=== PATIENT | male | born 1970 | race Caucasian/White ===

== ENCOUNTER 2019-06-21 18:44 | Emergency (ER) | payer OTHER, SELFPAY ==
--- NOTE | ~2019-06-21 | XR_ITS ---
EXAMINATION: XR chest 2V 06/21/2019 20:14 INDICATION: Midsternal chest pain. Emphysema. PROCEDURE: 2 view chest COMPARISON: No prior studies for comparison. FINDINGS: The lungs are clear. Healed right seventh rib fracture. The cardiomediastinal silhouette is within normal limits. There are no pleural effusions. There is no pneumothorax suspected. The lungs are hyperinflated which is consistent with, but not diagnostic of chronic obstructive pulmo nary disease. IMPRESSION: 1: NO ACUTE CARDIOPULMONARY DISEASE. Reviewed, dictated and finalized at location [facility]
[2019-06-21 19:26] VITALS: BP 135/87; PULSE 78; RESP 15; O2SAT 98
--- NOTE | 2019-06-21 19:26 | PC.NURSE ---
Family member with patient came to desk to report that patient keeps stopping breathing . Vital signs obtained and documented. Informed patient of reason for wait for triage.
[2019-06-21 19:52] VITALS: BP 134/85; PULSE 76; RESP 18; TEMP 36.8; O2SAT 98
--- NOTE | 2019-06-21 19:52 | ECG_ITS ---
Measurements Intervals [place] Rate: 82 P: 61 TN: 164 QRS: 60 QRSD: 94 T: 59 QT: 360 QTc: 422 Interpretive Statements SINUS RHYTHM BASELINE ARTIFACT- I, II, AVR, AVF, V1-V3 NORMAL ECG Electronically Signed On 06-22-2019 8:00:01 INTERCHANGE AGENT by Manjinder Anderson D.O.
[2019-06-21 20:02] LABS: Basophils Absolute Auto 0.1 K/mm3 (0.0-0.1); Basophils Percent Auto 1.3 % (0.2-1.2); Eosinophils Absolute Auto 0.2 K/mm3 (0-0.3); Eosinophils Percent Auto 5.1 % (0-4.4); Hematocrit 37.9 % (42.0-52.0); Hemoglobin 12.1 g/dL (14.0-18.0); Lymphocytes Absolute Auto 1.62 K/mm3 (0.9-3.2); Lymphocytes Percent Auto 41.3 % (18.3-44.2); Mean Corpuscular HGB Conc 31.9 g/dl (32-36); Mean Corpuscular Hemoglobin 26.5 pg (26-34); Mean Corpuscular Volume 83.1 fl (80-100); Mean Platelet Volume 8.9 fl (7.4-10.4); Monocytes Absolute Auto 0.4 K/mm3 (0.1-0.6); Monocytes Percent Auto 11.2 % (2.6-8.5); Neutrophils Absolute Auto 1.6 K/mm3 (1.3-6.7); Neutrophils Percent Auto 41.1 % (45.5-73.1); Platelet Count Result 76 k/mm3 (150-375); Red Blood Count 4.56 M/mm3 (4.6-6.20); Red Cell Distribution Width 17.7 % (11.5-14.5); White Blood Count 3.9 K/mm3 (4.5-10.0)
[2019-06-21 20:13] LABS: Blood Urea Nitrogen 5 mg/dL (9-20); Calcium 8.7 mg/dL (8.4-10.2); Carbon Dioxide 26 mmol/L (22-30); Chloride 98 mmol/L (98-107); Estimated CRCL calculation 157 ml/min; Estimated Glomerular Filt Rate > 60; Glucose 72 mg/dL (75-110); Potassium 3.7 mmol/L (3.4-5.0); Sodium 139 mmol/L (137-145)
[2019-06-21 20:15] LABS: Partial Thromboplastin Time 30.1 SECONDS (22.3-36.8); Prothrombin Time 12.7 Seconds (11.1-14.7)
[2019-06-21 20:26] LABS: Troponin I < 0.012 ng/mL (0.000-0.034)
[2019-06-21 20:50] VITALS: BP 158/104; PULSE 71; RESP 16; TEMP 36.6; O2SAT 96
--- NOTE | 2019-06-21 21:17 | ED.CHESTPAIN ---
HPI - Chest Pain General Chief Complaint: Chest Pain Stated Complaint: CP, SOB Time Seen by Provider: 06/21/19 21:04 Source: patient and RN notes reviewed Mode of arrival: other Limitations: no limitations History of Present Illness HPI narrative: Pt is a 48 y/o male who presents to the ED with midsternal chest pain that began earlier this afternoon. Pt denies his pain radiating to another location. Pt reports urinary and fecal incontinence because he cannot get to the bathroom in time. Pt notes that his stool is soft and watery. He notes that he has had a lot of bright, red blood that is mixed with his stool. Pt was checked for hemorrhoids last month and had negative results. Pt also reports SOB, LLQ ABD pain, BLE pain, dysuria, urinary urgency, coughing up teaspoons of blood, and dizziness, but denies vomiting and lightheadedness. MD complaint: chest pain Onset (ago): hour(s) Timing of current episode: still present Pain location: substernal Pain radiation: none Associated symptoms: dyspnea and other (LLQ ABD pain, BLE pain, blood in his stools, urinary incontinence, fecal incontinence, dysuria, urinary urgency, coughing up teaspoons of blood, dizziness) Related Data Allergies Allergy/AdvReac Type Severity Reaction Status Date / Time codeine Allergy Rash Verified 06/21/19 21:31 Penicillins Allergy Rash Verified 06/21/19 21:31 Review of Systems Review of Systems: Narrative: All systems reviewed & are unremarkable except as noted in HPI and below Cardiovascular: Cardiovascular: Reports chest pain (midsternal) and Denies lightheadedness Respiratory: Respiratory: Reports hemoptysis (teaspoons) and Reports dyspnea Gastrointestinal: Gastrointestinal: Reports abdominal pain (LLQ), Reports hematochezia, Reports fecal incontinence, Reports loose stools and Denies vomiting Genitourinary: Genitourinary: Reports dysuria, Reports urinary incontinence and Reports urinary urgency Musculoskeletal: Musculoskeletal: Reports other (BLE pain) Neurologic: Reports dizziness PMFSH Past Medical History Medical History (Updated 06/22/19 @ 03:19 by Rico Bailey MD) Colon polyp COPD (chronic obstructive pulmonary disease) Emphysema of lung Seizures Surgical History Surgical History (Updated 06/21/19 @ 22:50 by Sosa Lopez) Hx of endoscopy Exam Const: General: no acute distress and ill appearing acutely and chronically Nutritional Appearance: well nourished HENMT: Mouth: Yes lip normal, Yes moist mucous membranes and Yes malodorous breath other (breath of alcohol) Eyes: Conjunctivae: conjunctivae normal Pupils: Equal, round and reactive pupils present Resp: Effort & Inspection: normal respiratory effort Auscultation: clear to auscultation bilaterally Cardio: Rate: regular rate Rhythm: regular rhythm GI: GI Palp: Yes abdominal tenderness (generalized, worse in LLQ) and Yes Soft to palpation Auscultation: normal bowel sounds Back/Spine/Pelvis: Back: other (Full ROM) Skin: General skin exam: normal color, dry skin and other (warm) Neuro: General: patient oriented x3 and other (alert) Speech: normal speech Extrem: General: full ROM Psych: Mental Status: mental status grossly normal Affect: normal affect Course Vital Signs Vital signs: Vital Signs Pulse Rate 78 06/21/19 19:26 Respiratory Rate 15 06/21/19 19:26 Blood Pressure 135/87 06/21/19 19:26 Pulse Oximetry 98 06/21/19 19:26 Temperature 36.6 C 06/21/19 20:50 Pulse Rate 75 06/22/19 02:04 Respiratory Rate 13 06/22/19 02:04 Blood Pressure 113/75 06/22/19 02:04 Pulse Oximetry 91 06/22/19 00:24 MDM - Chest Pain MDM Narrative Medical decision making narrative: Cardiac work-up was negative. Normal hemoglobin, stable on recheck. Chest x-ray negative. No indication of UTI. Lab Data Result diagrams: 06/22/19 02:46 06/21/19 19:56 Labs: Lab Results 06/21/19 06/21/19 06/21/19 Range/U
[2019-06-21] MEDS: ALBUTEROL SULFATE NEB 2.5 MG/0.5 ML INH 5 MG INHALATION (21:37)
[2019-06-21 21:38] VITALS: PULSE 69; RESP 16
[2019-06-21] MEDS: IPRATROPIUM BR 0.02% INH SOLN 0.5 MG/2.5 ML VIAL INHALATION (21:38)
[2019-06-21 21:46] VITALS: PULSE 71; RESP 16
[2019-06-21] MEDS: PANTOPRAZOLE SODIUM IV 40 MG VIAL IV PUSH (21:54)
[2019-06-21 21:55] VITALS: BP 118/71; PULSE 73; RESP 12; O2SAT 96
[2019-06-21 22:18] LABS: Alanine Aminotransferase 87 U/L (4-50); Albumin Level 4.3 g/dL (3.5-5.1); Alkaline Phosphatase 54 U/L (38-126); Aspartate Amino Transferase 174 U/L (17-59); Bilirubin,Total 0.7 mg/dL (0.2-1.3); Lipase 262 U/L (23-300)
[2019-06-21 22:27] LABS: Ethanol 405 mg/dL (<10)
[2019-06-21 23:25] LABS: Troponin I < 0.012 ng/mL (0.000-0.034)
[2019-06-22 00:24] VITALS: BP 114/77; PULSE 76; RESP 14; O2SAT 91
[2019-06-22 02:04] VITALS: BP 113/75; PULSE 75; RESP 13
[2019-06-22 02:53] LABS: Hematocrit 35.4 % (42.0-52.0); Hemoglobin 11.4 g/dL (14.0-18.0)
--- NOTE | 2019-06-22 11:38 | PCCCNOTE ---
0800 - spoke with patient and spouse regarding transportation home. Spouse requested bus tokens for herself and . Called his [employer] and found that his insurance, [employer], had transportation benefits - he could pay for the transportation and be reimbursed by [employer] or [employer] would find a local provider who could take them both to [place]. Reiterated with patient and family that because he did have transportation benefits he would need to wait the approximate 1 - 3 hrs for transportation but included that [employer] felt there would be transportation in approximately 1 hr. Spouse was unhappy that bus tokens were not provided immediately. Checked on patient in ED lounge approx 30 min later and both the patient and spouse decided not to wait for [employer]-provided transportation and they walked to a nearby scientology in hopes that the scientology would provide transportation to [place]
== END 2019-06-22 02:04 | disposition home or self-care (01) ==
PROVIDERS: Emergency Medicine; Emergency Provider Emergency Medicine; PCP Internal Medicine Gastroenterology
DX: R10.32 Left lower quadrant pain (principal); F10.10 Alcohol abuse, uncomplicated; Y90.8 Blood alcohol level of 240 mg/100 ml or more; J43.9 Emphysema, unspecified
CPT/HCPCS: 36415; 71046; 80048; 80076; 80307; 83690; 84484; 85014; 85018; 85025; 85610; 85730; 93005; 94640; 96374; 99284; C9113